=== PATIENT | female | born 1985 | race Caucasian/White ===

== ENCOUNTER 2017-12-19 17:57 | Outpatient (CLI) | payer MEDICAID ==
[2017-12-19 18:44] LABS: ADD UMIC YES; UR ASCORBIC ACID NEGATIVE (NEGATIVE); UR BILIRUBIN (Dip) NEGATIVE (NEGATIVE); UR BLOOD (Dip) NEGATIVE (NEGATIVE); UR CLARITY CLEAR (CLEAR); UR COLOR YELLOW (YELLOW); UR GLUCOSE (Dip) NEGATIVE (NEGATIVE); UR KETONES (Dip) NEGATIVE (NEGATIVE); UR LEUKOCYTE ESTERASE (Dip) TRACE Leu/ul (NEGATIVE); UR NITRITE (Dip) NEGATIVE (NEGATIVE); UR RBC 1 /HPF (0-5); UR SPECIFIC GRAVITY (Dip) 1.012 (1.003-1.030); UR SQUAMOUS EPITHELIAL CELL FEW /HPF (FEW); UR TOTAL PROTEIN (Dip) NEGATIVE (NEGATIVE); UR UROBILINOGEN (Dip) NEGATIVE (NEGATIVE); UR WBC 4 /HPF (0-5)
[2017-12-19] MEDS: LACTATED RINGER'S 1,000 ML IV ×2 (19:21→20:19)
[2017-12-19] MEDS: TERBUTALINE 1 MG/ML INJ SC ×2 (19:22→21:07)
[2017-12-19] MEDS: BETAMET NA PHOS/AC(6 MG/ML) 5ML INJ IM (21:08)
== END 2017-12-19 22:31 | disposition home or self-care (01) ==
LOC: OBT 17:57 → L-D 17:58 → OBT 22:31
DX: O62.9 Abnormality of forces of labor, unspecified (principal); Z3A.35 35 weeks gestation of pregnancy
CPT/HCPCS: 36415; 76818; 81001; 87086; 96360; 96361; 96372

== ENCOUNTER 2017-12-20 20:25 | Outpatient (CLI) | payer MEDICAID ==
[2017-12-20] MEDS: BETAMET NA PHOS/AC(6 MG/ML) 5ML INJ IM (21:19)
== END 2017-12-20 22:10 | disposition home or self-care (01) ==
LOC: OBT 20:25 → L-D 20:27 → OBT 22:10
DX: O62.9 Abnormality of forces of labor, unspecified (principal); Z3A.35 35 weeks gestation of pregnancy
CPT/HCPCS: 96372

== ENCOUNTER 2017-12-21 20:08 | Inpatient (IN) | payer MEDICAID ==
[2017-12-21] MEDS ORDERED: TERBUTALINE 1 ML (21:11)
[2017-12-21] MEDS: LACTATED RINGER'S 1,000 ML IV ×2 (21:23→22:36)
[2017-12-21] MEDS: TERBUTALINE 1 MG/ML INJ SC ×2 (21:24→22:37)
[2017-12-21 21:29] LABS: ADD UMIC YES; UR ASCORBIC ACID NEGATIVE (NEGATIVE); UR BILIRUBIN (Dip) NEGATIVE (NEGATIVE); UR BLOOD (Dip) 2+ mg/dL (NEGATIVE); UR CLARITY CLEAR (CLEAR); UR COLOR COLORLESS (YELLOW); UR GLUCOSE (Dip) NEGATIVE (NEGATIVE); UR KETONES (Dip) NEGATIVE (NEGATIVE); UR LEUKOCYTE ESTERASE (Dip) TRACE Leu/ul (NEGATIVE); UR NITRITE (Dip) NEGATIVE (NEGATIVE); UR RBC 0 /HPF (0-5); UR SPECIFIC GRAVITY (Dip) 1.003 (1.003-1.030); UR TOTAL PROTEIN (Dip) NEGATIVE (NEGATIVE); UR UROBILINOGEN (Dip) NEGATIVE (NEGATIVE); UR WBC 3 /HPF (0-5)
[2017-12-21] MEDS ORDERED: LACTATED RINGER'S 1,000 ML IV (23:27)
[2017-12-21] MEDS ORDERED: ACETAMINOPHEN 650 MG SUPP PR (23:30)
[2017-12-21] MEDS: ONDANSETRON 4 MG INJ IV (23:53)
[2017-12-22] MEDS ORDERED: ACETAMINOPHEN 325 MG TAB PO
[2017-12-22] MEDS: NIFEdipine 10 MG CAP PO ×3 (00:29→12:01)
[2017-12-22] MEDS: MEPERIDINE 25 MG INJ IV (00:30)
[2017-12-22 00:34] LABS: ADD MAN DIFF? NO
[2017-12-22 00:37] LABS: WHITE BLOOD COUNT 13.9 10^3/ul (4.8-10.8)
[2017-12-22 00:37] LABS: BASOPHILS % 0.1 % (0.0-2.0); EOSINOPHILS % 0.1 % (0.0-7.0); HEMATOCRIT 32.1 % (37.0-47.0); HEMOGLOBIN 10.3 g/dl (12.0-16.0); LYMPHOCYTES # 1.2 10^3/ul (0.8-2.9); LYMPHOCYTES % 8.7 % (15.0-51.0); MEAN CORPUSCULAR HEMOGLOBIN 28.9 pg (29.0-33.0); MEAN CORPUSCULAR HGB CONC 32.1 g/dl (32.0-37.0); MEAN CORPUSCULAR VOLUME 90.2 fl (82.0-101.0); MEAN PLATELET VOLUME 11.1 fl (7.4-10.4); MONOCYTE # 0.6 10^3/ul (0.3-0.9); MONOCYTES % 4.6 % (0.0-11.0); NEUTROPHIL # 11.7 10^3/ul (1.6-7.5); NEUTROPHILS % 84.5 % (39.0-77.0); PLATELET COUNT 229 10^3/UL (140-415); RED BLOOD COUNT 3.56 10^6/ul (4.20-5.40); RED CELL DISTRIBUTION WIDTH 15.2 % (11.5-14.5)
[2017-12-22] MEDS: LACTATED RINGER'S 1,000 ML IV (07:53)
[2017-12-22] MEDS: DOCUSATE SODIUM 100 MG CAP PO (09:00)
[2017-12-22] MEDS: FERROUS SULFATE (EC) 325 MG TAB PO (09:37)
[2017-12-22] MEDS: PRENATAL VITAMIN PO (09:37)
== END 2017-12-22 17:10 | disposition home or self-care (01) | DRG 833 ==
LOC: OBT 20:08 → L-D 20:08
DX: O47.03 False labor before 37 completed weeks of gestation, third trimester (principal); Z3A.35 35 weeks gestation of pregnancy
CPT/HCPCS: 76818; 81001; 85025

== ENCOUNTER 2017-12-29 07:07 | Outpatient (CLI) | payer MEDICAID | END 2017-12-29 08:40 | disposition home or self-care (01) | LOC: OBT 07:07 → L-D 07:07 → OBT 08:40 | DX: O62.9 Abnormality of forces of labor, unspecified (principal); Z3A.36 36 weeks gestation of pregnancy | CPT/HCPCS: 76818 ==

== ENCOUNTER 2018-01-16 10:11 | Inpatient (IN) | payer MEDICAID ==
[2018-01-16] MEDS ORDERED: LACTATED RINGER'S 1,000 ML IV (11:25)
[2018-01-16] MEDS ORDERED: BUTORPHANOL 1 MG INJ IV (11:30)
[2018-01-16] MEDS ORDERED: OXYTOCIN 30 UNITS/LR 500 ML IV ×2 (11:30)
[2018-01-16] MEDS ORDERED: MISOPROSTOL 200 MCG TAB PR (11:30)
[2018-01-16] MEDS ORDERED: LIDOCAINE 1% (MPF) 30 ML INJ INJ (11:30)
[2018-01-16] MEDS ORDERED: METHYLERGONOVINE 0.2 MG INJ IM (11:30)
[2018-01-16] MEDS ORDERED: BUTORPHANOL 2 MG INJ IV (11:30)
[2018-01-16 12:04] LABS: ADD MAN DIFF? NO
[2018-01-16 12:26] LABS: INR 0.92; PARTIAL THROMBOPLASTIN TIME 28.4 Sec (23.0-35.0); PROTIME 12.4 Sec (11.9-14.9)
[2018-01-16 12:48] LABS: BASOPHILS % 0.3 % (0.0-2.0); EOSINOPHILS # 0.1 10^3/ul (0.0-0.5); EOSINOPHILS % 0.8 % (0.0-7.0); HEMATOCRIT 34.1 % (37.0-47.0); HEMOGLOBIN 11.1 g/dl (12.0-16.0); LYMPHOCYTES # 1.1 10^3/ul (0.8-2.9); LYMPHOCYTES % 12.5 % (15.0-51.0); MEAN CORPUSCULAR HEMOGLOBIN 28.8 pg (29.0-33.0); MEAN CORPUSCULAR HGB CONC 32.6 g/dl (32.0-37.0); MEAN CORPUSCULAR VOLUME 88.6 fl (82.0-101.0); MEAN PLATELET VOLUME 12.5 fl (7.4-10.4); MONOCYTE # 0.4 10^3/ul (0.3-0.9); MONOCYTES % 4.6 % (0.0-11.0); NEUTROPHILS % 81.5 % (39.0-77.0); PLATELET COUNT 245 10^3/UL (140-415); RED BLOOD COUNT 3.85 10^6/ul (4.20-5.40); RED CELL DISTRIBUTION WIDTH 14.9 % (11.5-14.5)
[2018-01-16 12:48] LABS: WHITE BLOOD COUNT 8.6 10^3/ul (4.8-10.8)
[2018-01-16] MEDS ORDERED: MINERAL OIL LIGHT 10 ML VIAL TOP ×2 (13:00)
[2018-01-16] MEDS ORDERED: LIDOCAINE 0.5% (SDV) 50 ML INJ INFIL ×2 (13:00)
[2018-01-16 13:09] LABS: ADD UMIC YES; UR ASCORBIC ACID NEGATIVE (NEGATIVE); UR BILIRUBIN (Dip) NEGATIVE (NEGATIVE); UR BLOOD (Dip) NEGATIVE (NEGATIVE); UR CLARITY CLEAR (CLEAR); UR COLOR STRAW (YELLOW); UR GLUCOSE (Dip) NEGATIVE (NEGATIVE); UR KETONES (Dip) 1+ mg/dL (NEGATIVE); UR LEUKOCYTE ESTERASE (Dip) TRACE Leu/ul (NEGATIVE); UR MUCUS FEW /HPF (NONE SEEN); UR NITRITE (Dip) NEGATIVE (NEGATIVE); UR RBC 0 /HPF (0-5); UR SPECIFIC GRAVITY (Dip) 1.006 (1.003-1.030); UR TOTAL PROTEIN (Dip) NEGATIVE (NEGATIVE); UR UROBILINOGEN (Dip) NEGATIVE (NEGATIVE); UR WBC 1 /HPF (0-5)
[2018-01-16] MEDS: LACTATED RINGER'S 1,000 ML IV ×2 (13:41→18:47)
[2018-01-16] MEDS: OXYTOCIN 30 UNITS/LR 500 ML IV (13:42)
[2018-01-16] MEDS ORDERED: KETOROLAC 30 MG INJ IV (15:30)
[2018-01-16] MEDS ORDERED: FENTAnyl 2MCG/ML-ROPIV 0.2% 100 ML BAG EPI (15:30)
[2018-01-16] MEDS ORDERED: NALOXONE (0.4 MG/ML) INJ IV (15:30)
[2018-01-16] MEDS ORDERED: DIPHENHYDRAMINE 50 MG INJ IV (15:30)
[2018-01-16] MEDS ORDERED: HYDROmorphONE 0.5 MG/0.5 ML SYG IV ×2 (15:30)
[2018-01-16 18:16] LABS: RAPID PLASMA REAGIN NONREACTIVE (NR)
[2018-01-16] MEDS: ONDANSETRON 4 MG INJ IV (22:58)
[2018-01-17] MEDS: OXYTOCIN 30 UNITS/LR 500 ML IV (00:35)
[2018-01-17] MEDS: IBUPROFEN 600 MG TAB PO ×4 (00:37→18:00)
[2018-01-17] MEDS ORDERED: CARBOPROST 250 MCG INJ IM (03:00)
[2018-01-17] MEDS ORDERED: ZOLPIDEM 5 MG TAB PO (03:00)
[2018-01-17] MEDS ORDERED: MISOPROSTOL 200 MCG TAB PR (03:00)
[2018-01-17] MEDS ORDERED: OXYTOCIN 30 UNITS/LR 500 ML IV (03:00)
[2018-01-17] MEDS ORDERED: METHYLERGONOVINE 0.2 MG INJ IM (03:00)
[2018-01-17] MEDS ORDERED: DIBUCAINE 1% 30 GM OINT TOP (03:00)
[2018-01-17] MEDS: WITCH HAZEL/GLYCERIN PAD PR (03:19)
[2018-01-17] MEDS: BENZOCAINE 20% 56 ML SPRAY TOP (03:19)
[2018-01-17] MEDS: LANOLIN 7 GM TUBE TOP (03:19)
[2018-01-17] MEDS: HYDROCODONE/APAP (5/325) TAB PO ×2 (03:44→23:13)
[2018-01-17] MEDS: LACTATED RINGER'S 1,000 ML IV* ×3 (05:02→18:40)
[2018-01-17] MEDS ORDERED: CEFAZOLIN 1 GM INJ (07:00)
[2018-01-17 07:54] LABS: ADD MAN DIFF? NO
[2018-01-17 08:00] LABS: WHITE BLOOD COUNT 12.7 10^3/ul (4.8-10.8)
[2018-01-17 08:00] LABS: BASOPHILS % 0.2 % (0.0-2.0); EOSINOPHILS # 0.1 10^3/ul (0.0-0.5); EOSINOPHILS % 0.5 % (0.0-7.0); HEMATOCRIT 31.1 % (37.0-47.0); HEMOGLOBIN 10.3 g/dl (12.0-16.0); LYMPHOCYTES # 1.2 10^3/ul (0.8-2.9); LYMPHOCYTES % 9.5 % (15.0-51.0); MEAN CORPUSCULAR HEMOGLOBIN 29.2 pg (29.0-33.0); MEAN CORPUSCULAR HGB CONC 33.1 g/dl (32.0-37.0); MEAN CORPUSCULAR VOLUME 88.1 fl (82.0-101.0); MEAN PLATELET VOLUME 11.3 fl (7.4-10.4); MONOCYTE # 0.8 10^3/ul (0.3-0.9); MONOCYTES % 6.2 % (0.0-11.0); NEUTROPHIL # 10.6 10^3/ul (1.6-7.5); NEUTROPHILS % 83.2 % (39.0-77.0); PLATELET COUNT 213 10^3/UL (140-415); RED BLOOD COUNT 3.53 10^6/ul (4.20-5.40); RED CELL DISTRIBUTION WIDTH 14.7 % (11.5-14.5)
[2018-01-17] MEDS: MAGNESIUM HYDROXIDE 30ML CUP PO ×2 (09:00→22:19)
[2018-01-17] MEDS: SENNA/DOCUSATE NA (8.6MG/50MG) TAB PO ×2 (09:00→22:19)
[2018-01-17] MEDS ORDERED: MIDAZOLAM 1 MG/ML 2 ML INJ ×2 (14:57→15:54)
[2018-01-17] MEDS ORDERED: ONDANSETRON 4 MG INJ (14:57)
[2018-01-17] MEDS ORDERED: IPRATROPIUM (NEB) 0.5 MG/2.5 ML AMP HHN (15:00)
[2018-01-17] MEDS ORDERED: EPHEDrine SULFATE 50 MG/5 ML SYG IV (15:00)
[2018-01-17] MEDS ORDERED: hydrALAzine 20 MG INJ IV (15:00)
[2018-01-17] MEDS ORDERED: MEPERIDINE 25 MG INJ IV (15:00)
[2018-01-17] MEDS ORDERED: ALBUTEROL 0.083% (NEB) 2.5 MG/3 ML AMP HHN (15:00)
[2018-01-17] MEDS ORDERED: LABETALOL HCL 20MG INJ IV (15:00)
[2018-01-17] MEDS ORDERED: TRIMETHOBENZAMIDE 100 MG/ML VIAL IM (15:00)
[2018-01-17] MEDS ORDERED: HYDROmorphONE 1 MG/5 ML IV SYRINGE IV ×2 (15:00)
[2018-01-17] MEDS ORDERED: DIPHENHYDRAMINE 50 MG INJ IV (15:00)
[2018-01-17] MEDS ORDERED: FENTAnyl 50 MCG/ML VIAL IV ×3 (15:00)
[2018-01-17] MEDS ORDERED: MIDAZOLAM 1 MG/ML 2 ML INJ IV (15:00)
[2018-01-17] MEDS ORDERED: OXYCODONE/ACETAMINOPHEN (5/325) TAB PO ×2 (15:00)
[2018-01-17] MEDS: BUPIVACAINE 0.25%/EPI (MDV) 50 ML VIAL INJ (15:25)
[2018-01-17] MEDS ORDERED: FENTAnyl 50 MCG/ML VIAL ×2 (15:41→15:53)
[2018-01-17] MEDS ORDERED: KETOROLAC 30 MG INJ ×2 (15:55→17:00)
[2018-01-17] MEDS: LACTATED RINGER'S 1,000 ML IV (16:17)
[2018-01-17] MEDS: ONDANSETRON 4 MG INJ IV (16:18)
[2018-01-17] MEDS: HYDROmorphONE 1 MG/5 ML IV SYRINGE IV (16:18)
[2018-01-17] MEDS: BUTORPHANOL 2 MG INJ IM (17:01)
[2018-01-17] MEDS: KETOROLAC 60 MG INJ IM (17:02)
[2018-01-17] MEDS ORDERED: ACETAMINOPHEN 325 MG TAB PO (17:30)
[2018-01-18] MEDS: IBUPROFEN 600 MG TAB PO ×3 (00:53→12:02)
[2018-01-18] MEDS: CEPHALEXIN 500 MG CAP PO ×2 (06:11→12:02)
[2018-01-18] MEDS: MAGNESIUM HYDROXIDE 30ML CUP PO (09:26)
[2018-01-18] MEDS: SENNA/DOCUSATE NA (8.6MG/50MG) TAB PO (09:26)
[2018-01-18] MEDS: DIPHTH/TET/ACEL PERTUSS (ADULT) 0.5 ML VIAL IM* (12:00)
[2018-01-19] MEDS ORDERED: VARICELLA VACCINE LIVE/PF 1,350 UNIT/0.5 ML ML SC* (09:00)
[2018-01-19] MEDS ORDERED: MEASLES,MUMPS,RUBELLA VACCINE INJ SC* (09:00)
== END 2018-01-18 15:58 | disposition home or self-care (01) | DRG 798 ==
LOC: L-D 10:11 → PP1 01-17 02:41
PROVIDERS: Obstetrics & Gynecology
PROC: 4A1HXCZ Monitoring of Products of Conception, Cardiac Rate, External Approach (ICD-10-PCS; 2018-01-16 10:30)
PROC: 3E0P7GC Introduction of Other Therapeutic Substance into Female Reproductive, Via Natural or Artificial Opening (ICD-10-PCS; 2018-01-16 10:30)
PROC: 10E0XZZ Delivery of Products of Conception, External Approach (ICD-10-PCS; principal; 2018-01-17 14:00)
PROC: 0HQ9XZZ Repair Perineum Skin, External Approach (ICD-10-PCS; 2018-01-17 14:00)
PROC: 0UB70ZZ Excision of Bilateral Fallopian Tubes, Open Approach (ICD-10-PCS; 2018-01-17 14:50)
DX: O28.1 Abnormal biochemical finding on antenatal screening of mother (principal); Z37.0 Single live birth; O70.0 First degree perineal laceration during delivery; Z3A.39 39 weeks gestation of pregnancy; Z30.2 Encounter for sterilization
CPT/HCPCS: 76815; 81001; 85025; 85610; 85730; 86592; 86850; 86900; 86901; 87086; 88302